=== PATIENT | male | born 1970 | race Caucasian/White ===

== ENCOUNTER 2017-12-13 15:36 | Emergency (ER) | payer OTHER ==
[2017-12-13 15:48] VITALS: TEMP 98; BMI 30.2
[2017-12-13] MEDS ORDERED: MAG HYDROX/AL HYDROX/SIMETH 30 ML UNIT-DOSE CUP PO ONE (16:39)
[2017-12-13] MEDS ORDERED: FAMOTIDINE 20 MG/50 ML IVPB 20 MG/50 ML MG IVPB ONE ×2 (16:39→17:15)
[2017-12-13] MEDS ORDERED: SODIUM CHLORIDE 1,000 ML IV STA (16:39)
--- NOTE | 2017-12-13 16:40 | PDOC ---
History of Present Illness - General Chief Complaint: Pain Stated Complaint: ABD PAIN Time Seen by Provider: 12/13/17 16:19 - History of Present Illness Initial Comments: 12/13/17 16:41 The patient is a 47 year old male with a history of DM, GERD who presents for evaluation of epigastric abdominal pain. The patient reports a 1 week history of burning 3/10 epigastric abdominal pain without any notable exacerbating or relieving factors. He notes that the pain is constant prompting his presentation to the ED for evaluation. He notes that he has had a recent endoscopy which was negative and also endorses some intermittent diarrhea over the past week. He denies fevers chills, SOB, chest pain, nausea, vomiting, or changes with urination. Past History - Past Medical History Allergies/Adverse Reactions: Allergies Allergy/AdvReac Type Severity Reaction Status Date / Time No Known Allergies Allergy Verified 12/13/17 15:44 Home Medications: Ambulatory Orders Metformin HCl [Glucophage] 500 mg PO BID 12/13/17 Omeprazole Magnesium [Prilosec Otc] 20 mg PO DAILY 12/13/17 COPD: No Diabetes: Yes GI Disorders: Yes (gerd) - Suicide/Smoking/Psychosocial Hx Smoking History: Current every day smoker Have you smoked in the past 12 months: Yes Number of Cigarettes Smoked Daily: 10 Information on smoking cessation initiated: Yes 'Breaking Loose' booklet given: 12/13/17 Hx Alcohol Use: No Drug/Substance Use Hx: No Substance Use Type: None Review of Systems - Review of Systems Comments:: 12/13/17 16:44 Constitutional: No fevers, chills, fatigue, malaise HEENT: No Rhinorrhea, nasal congestion, visual changes Cardiovascular: No chest pain, syncope, palpitations, lightheadedness Respiratory: No Cough, SOB, Hemoptysis, Gastrointestinal: Epigastric abdominal pain, diarrhea. No Nausea, Vomiting, Constipation, Melena Genitourinary: No Dysuria, Frequency, Urgency, Hesitancy, Hematuria, Flank pain Musculoskeletal: No Myalgia, arthralgia Skin: No rashes, itching, bruising, pallor Neurologic: No Headache, Dizziness, Numbness, Weakness, or Tingling Psychiatric: No Hallucinations. No SI or HI *Physical Exam - Vital Signs Last Vital Signs Temp Pulse Resp BP Pulse Ox 98.0 F 79 18 142/101 100 12/13/17 15:44 12/13/17 15:44 12/13/17 15:44 12/13/17 15:44 12/13/17 15:44 - Physical Exam Comments: 12/13/17 16:45 General Appearance: Nourished. No Apparent Distress HEENT: EOMI, RODRIGO. No Pharyngeal Erythema, Tonsillar Exudate, Tonsillar Erythema Neck: No Cervical Lymphadenopathy Respiratory/Chest: Lungs Clear, Normal Breath Sounds. No Crackles, Rales, Rhonchi, Wheezing Cardiovascular: Regular Rhythm, Regular Rate. No Murmur, Gallops, Rubs Gastrointestinal/Abdominal: Normal Bowel Sounds, Soft. Negative Figueredo's. No Guarding, Rebound, Tenderness Musculoskeletal: No CVA Tenderness Extremity: Normal Capillary Refill Integumentary: Normal Color, Dry, Warm Neurologic: Fully Oriented, Alert, Normal Mood/Affect, Normal Response, Heart Score/ECG Review #1 ECG reviewed & interpreted by me at: 17:14 General ECG Interpretation: Sinus Rhythm, Normal Rate, Normal Intervals, No acute ischemic changes ED Treatment Course - LABORATORY CBC & Chemistry Diagram: 12/13/17 17:10 12/13/17 17:10 Medical Decision Making - Medical Decision Making 12/13/17 16:46 The patient is a 47 year old male with a history of DM, GERD who presents for evaluation of epigastric abdominal pain. Differential includes but is not limited to: Gastritis, Gastroenteritis, pancreatitis, cholecystitis, infections , metabolic derangement. Given the patient's history and physical exam, it is likely the patient's symptoms are due to a Gastritis. However we will obtain a cbc, cmp, lipase, ekg to evaluate for other etiologies. We will treat the patient with iv fluids, pepcid and maalox in the meantime. We will continue to monitor and reassess. 12/13/17 18:01 CBC, cmp, lipase, EKG are unremarkable. The patient reports some improvement in his symptoms. We are comfortable discharging the patient home at this time with GI follow up. We discussed return precautions with the patient as well as the results of his testing. The patient voiced understanding and is agreeable with the plan. *DC/Admit/Observation/Transfer Diagnosis at time of Disposition: Abdominal pain Qualifiers: Abdominal location: epigastric Qualified Code(s): R10.13 - Epigastric pain - Discharge Dispostion Disposition: HOME Condition at time of disposition: Good Admit: No - Referrals Referrals: Pete Duarte MD [Staff Physician] - - Patient Instructions Printed Discharge Instructions: DI for Abdominal Pain-Adult Additional Instructions: Please return to the ER if you experience concerning or worsening symptoms including worsening abdominal pain, fevers, or vomiting. Your lab results were normal here in the ER. It is important that you call to schedule a follow up appointment with a GI specialist (Dr. Duarte) whose number we have provided within 2-3 days to discuss further management of your symptoms. - Post Discharge Activity
--- NOTE | 2017-12-13 16:41 | PDOC ---
Attending Attestation - Resident Resident Name: Abdullahi Diego - ED Attending Attestation I have performed the following: I have examined & evaluated the patient, The case was reviewed & discussed with the resident, I agree w/resident's findings & plan, Exceptions are as noted - HPI HPI: 12/13/17 16:38 47 yo male has been experiencing 1 week of epigastric discomfort,burning,its constant ,unrelated to meals,denied nausea,vomiting,fever,chills,chest pain PMG acid reflux -recently has endoscopy that was negative - Physicial Exam PE: 12/13/17 18:10 wnwd 47 yo male with c/o epigastric discomfort for several days. He does drink alcohol 3x a week head ncat neck supple lungs cta b/l cvs tachycardia abd no rebound,no guarding ext no rashes,no edema neuro axox3,no gross focal deficits skin warm and dry psych apprpriate 12/13/17 18:25 - Medical Decision Making 12/13/17 18:29 labs reviewed, LFTs wnl,glucose 165 pt received PPI and symptoms abated. He has a GI specialist and will followup with him
[2017-12-13] MEDS ORDERED: MAG HYDROX/AL HYDROX/SIMETH 30 ML UNIT-DOSE CUP ONE (17:15)
[2017-12-13 17:20] LABS: BASO % 0.4 % (0-2.0); EOS % 0.5 % (0-4.5); HEMATOCRIT 46.5 % (35.4-49); HEMOGLOBIN 16.1 GM/dL (11.7-16.9); LYMPH % 33.6 % (8-40); MCH 31.1 pg (25.7-33.7); MCHC 34.5 g/dl (32.0-35.9); MEAN PLT VOLUME 8.4 fl (7.5-11.1); MONO % 8.9 % (3.8-10.2); NEUT % 56.6 % (42.8-82.8); PLATELET COUNT 236 K/MM3 (134-434); RBC 5.17 M/mm3 (4.00-5.60); RDW 13.3 % (11.9-15.9); WHITE BLOOD COUNT 8.9 K/mm3 (4.0-10.0)
[2017-12-13 17:51] LABS: ALBUMIN 4.1 g/dl (3.4-5.0); ALK PHOS 78 U/L (45-117); ANION GAP 8 (8-16); BILIRUBIN,TOTAL 0.3 mg/dL (0.2-1.0); BLOOD UREA NITROGEN 17 mg/dL (7-18); CALCIUM 9.1 mg/dL (8.5-10.1); CHLORIDE 101 mmol/L (98-107); CO2 28 mmol/L (21-32); CREATININE 0.7 mg/dL (0.7-1.3); GLUCOSE,RANDOM 165 mg/dL (74-106); LIPASE 152 U/L (73-393); SGOT/AST 10 U/L (15-37); SGPT/ALT 29 U/L (12-78); SODIUM 137 mmol/L (136-145); TOT PROT 7.3 g/dl (6.4-8.2)
[2017-12-13 18:52] VITALS: BP 136/95; PULSE 66
--- NOTE | 2017-12-14 10:45 | EKG ---
Test Reason : Blood Pressure : / mmHG Vent. Rate : 066 BPM Atrial Rate : 066 BPM P-R Int : 150 ms QRS Dur : 102 ms QT Int : 374 ms P-R-T Axes : 061 066 045 degrees QTc Int : 392 ms NORMAL SINUS RHYTHM NORMAL ECG NO PREVIOUS ECGS AVAILABLE Confirmed by PUJA SIGALA MD ([id number]) on 12/14/2017 10:45:42 AM Referred By: Confirmed By:PUJA SIGALA MD
== END 2017-12-13 18:52 | disposition home or self-care (01) ==
LOC: JER 15:36
PROC: 3E033GC Introduction of Other Therapeutic Substance into Peripheral Vein, Percutaneous Approach (ICD-10-PCS; principal; 2017-12-13)
PROC: 3E0337Z Introduction of Electrolytic and Water Balance Substance into Peripheral Vein, Percutaneous Approach (ICD-10-PCS; 2017-12-13)
DX: R10.13 Epigastric pain (principal); E11.9 Type 2 diabetes mellitus without complications; K21.9 Gastro-esophageal reflux disease without esophagitis; F17.210 Nicotine dependence, cigarettes, uncomplicated; Z79.84 Long term (current) use of oral hypoglycemic drugs
CPT/HCPCS: 36415; 80053; 83690; 85025; 93005; 93010; 99282-25

== ENCOUNTER 2019-05-08 09:42 | Emergency (ER) | payer OTHER | END 2019-05-08 10:54 | disposition left against medical advice (07) | LOC: JER 09:42 ==

== ENCOUNTER 2019-07-01 22:01 | Emergency (ER) | payer OTHER ==
[2019-07-01 22:30] VITALS: BP 135/75; PULSE 90; TEMP 98.8; BMI 28.5
--- NOTE | 2019-07-01 23:27 | PDOC ---
History of Present Illness - General Chief Complaint: Rash Stated Complaint: Rash Time Seen by Provider: 07/01/19 22:35 - History of Present Illness Initial Comments: 07/01/19 23:34 CHIEF COMPLAINT: rash HISTORY OF PRESENT ILLNESS: 49 yo M with hx of diabetes presents to ED with rash to L leg. Patient reports he was bitten by something a month ago and had a large red welt to his left leg. Since then the welt has dissipated and now he has red bumps the same area. He denies any itching but reports tenderness. Denies any fever, chills, nausea, vomiting, diarrhea . No recent travel or sick contacts. PAST MEDICAL HISTORY: Denies past medical history FAMILY HISTORY: Denies SOCIAL HISTORY: Denies tobacco, alcohol, illicit drug use. SURGICAL HISTORY: Denies ALLERGIES: No known drug allergies REVIEW OF SYSTEMS General/Constitutional: Denies fever or chills. Denies weakness, weight change. HEENT: Denies change in vision. Denies ear pain or discharge. Denies sore throat. Cardiovascular: Denies chest pain or shortness of breath. Respiratory: Denies cough, wheezing, or hemoptysis. Gastrointestinal: Denies nausea, vomiting, diarrhea or constipation. Denies rectal bleeding. Genitourinary: Denies dysuria, frequency, or change in urination. Musculoskeletal: Denies joint or muscle swelling or pain. Denies neck or back pain. Skin: Rash to L leg. Neurologic: Denies headache, vertigo, loss of consciousness, or loss of sensation. PHYSICAL EXAM General Appearance: Well-appearing, appropriately dressed. No apparent distress , no intoxication. HEENT: EOMI, PERRLA, normal ENT inspection, normal voice, TMs normal, pharynx normal. No conjunctival pallor. No photophobia, scleral icterus. Neck: Supple. Trachea midline. No tenderness, rigidity, carotid bruit, stridor , lymphadenopathy, or thyromegaly. Respiratory/Chest: Lungs CTAB. No shortness of breath, chest tenderness, respiratory distress, accessory muscle use. No crackles, rales, rhonchi, stridor , wheezing, dullness Cardiovascular: RRR. S1, S2. No JVD, murmur, bradycardia, tachycardia. Vascular Pulses: Dorsalis-Pedis (R): 2+, Dorsalis-Pedis (L): 2+ Gastrointestinal/Abdominal: Normal bowel sounds. Abdomen soft, non-distended. No tenderness or rebound tenderness. No organomegaly, pulsatile mass, guarding , hernia, hepatomegaly, splenomegaly. Lymphatic: No adenopathy, tenderness. Musculoskeletal/Extremities: Normal inspection. FROM of all extremities, normal capillary refill. Pelvis Stable. No CVA tenderness. No tenderness to extremities, pedal edema, swelling, erythema or deformity. Integumentary: Multiple erythematous lesions to L medial knee extending down to L calf with tenderness on palpation. Appropriate color, dry, warm. 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 Fully oriented, alert. Appropriate mood/affect. Motor strength 5/5. No appreciable EOM palsy, facial droop or sensory deficit. Past History - Past Medical History Allergies/Adverse Reactions: Allergies Allergy/AdvReac Type Severity Reaction Status Date / Time No Known Allergies Allergy Verified 07/01/19 22:30 Home Medications: Ambulatory Orders Metformin HCl [Glucophage] 500 mg PO BID 12/13/17 Omeprazole Magnesium [Prilosec Otc] 20 mg PO DAILY 12/13/17 Sulfamethoxazole/Trimethoprim [Bactrim Ds -] 1 tab PO BID #14 tablet 07/01/19 COPD: No Diabetes: Yes GI Disorders: Yes (gerd) - Suicide/Smoking/Psychosocial Hx Smoking History: Never smoked Have you smoked in the past 12 months: No Number of Cigarettes Smoked Daily: 10 Information on smoking cessation initiated: No 'Breaking Loose' booklet given: 12/13/17 Hx Alcohol Use: No Drug/Substance Use Hx: No Substance Use Type: None *Physical Exam - Vital Signs Last Vital Signs Temp Pulse Resp BP Pulse Ox 98.8 F 90 18 135/75 100 07/01/19 22:28 07/01/19 22:28 07/01/19 22:28 07/01/19 22:28 07/01/19 22:28 Medical Decision Making - Medical Decision Making 07/01/19 23:51 49 yo M with hx of diabetes presents to ED with rash to L leg. Likely cellulitis secondary to insect bite. Bactrim rx sent to pharm 07/01/19 23:55 Advised patient to take meds as prescribed and of signs and symptoms for return to ER; patient verbalized understanding and agrees to plan. *DC/Admit/Observation/Transfer Diagnosis at time of Disposition: Cellulitis Qualifiers: Site of cellulitis: extremity Site of cellulitis of extremity: lower extremity Laterality: left Qualified Code(s): L03.116 - Cellulitis of left lower limb - Discharge Dispostion Disposition: HOME Condition at time of disposition: Stable Decision to Admit order: No - Prescriptions Prescriptions: Sulfamethoxazole/Trimethoprim [Bactrim Ds -] 1 tab PO BID #14 tablet - Referrals Referrals: Bucky Herbert [Primary Care Provider] - - Patient Instructions Printed Discharge Instructions: DI for Cellulitis -- Adult Additional Instructions: Please take medications as prescribed and complete the entire course of antibiotics, even if your symptoms improve. If your symptoms do not improve in 2 days, or they start to worsen within the next 2 days, or you develop fever, chills, nausea, vomiting, diarrhea, please return to the ER. - Post Discharge Activity
[2019-07-01] MEDS ORDERED: SULFAMETHOXAZOLE/TRIMETHOPRIM 800MG/160MG D.S. TABLET PO ONE (23:40)
[2019-07-01] MEDS ORDERED: SULFAMETHOXAZOLE/TRIMETHOPRIM 800MG/160MG D.S. TABLET ONE (23:44)
== END 2019-07-01 23:55 | disposition home or self-care (01) ==
LOC: JER 22:01
DX: L03.116 Cellulitis of left lower limb (principal); S80.862S Insect bite (nonvenomous), left lower leg, sequela; W57.XXXS Bitten or stung by nonvenomous insect and other nonvenomous arthropods, sequela; E11.9 Type 2 diabetes mellitus without complications; Z79.84 Long term (current) use of oral hypoglycemic drugs; K21.9 Gastro-esophageal reflux disease without esophagitis
CPT/HCPCS: 99281-25